=== PATIENT | female | born 1995 | race Caucasian/White ===

== ENCOUNTER 2016-12-09 12:08 | Emergency (ER) | payer BC ==
[2016-12-09 12:23] VITALS: RESP 20; TEMP 97.8
[2016-12-09] MEDS ORDERED: PROCHLORPERAZINE EDISYLATE 5 MG/ML SOL IV ONE (12:40)
[2016-12-09] MEDS ORDERED: PROCHLORPERAZINE EDISYLATE 5 MG/ML SOL ONE (12:41)
[2016-12-09 13:03] LABS: BASOPHILS % (AUTO) 1 % (0-3); EOSINOPHILS % (AUTO) 2 % (0-9); HEMATOCRIT 40 % (35-47); MEAN CORPUSCULAR HGB CONC 35.7 gm/dl (32.0-36.0); MEAN CORPUSCULAR VOLUME 89 fL (81-99); NEUTROPHILS % (AUTO) 50.3 % (37-80)
[2016-12-09 13:11] LABS: ALBUMIN 3.5 gm/dl (3.4-5.0); CALCIUM 8.3 mg/dl (8.5-10.1); POTASSIUM 3.8 mMol/L (3.5-5.1)
[2016-12-09 14:37] VITALS: O2SAT 100
[2016-12-09 20:27] VITALS: BP 121/70; PULSE 89
== END 2016-12-09 14:10 | disposition home or self-care (01) ==
LOC: ED 12:08
DX: R55 Syncope and collapse (principal)
CPT/HCPCS: 99285 ×3; 80053; 85025; J0780; 36415; 70450